=== PATIENT | female | born 1990 | race Caucasian/White ===

== ENCOUNTER 2017-02-16 01:09 | Emergency (ER) | payer MEDICAID ==
[2017-02-16] MEDS ORDERED: NORMAL SALINE 1000 ML 1,000 ML IV ONE (01:20)
--- NOTE | 2017-02-16 01:21 | ER Document Report ---
ED Headache - General Stated Complaint: BLURRY VISION,DIZZY Time Seen by Provider: 02/16/17 01:20 Notes: Patient is a 26-year-old female who presents to the ED complaining of headache with associated sinus congestion and intermittent dizzyness for 5 days. Described her headache as all around her head, consistent with tension type headache. Took motrin 400mg once yesterday with moderate improvement in her symptoms. States she hasnt been drinking much water but mostly coffee TRAVEL OUTSIDE OF THE [place] IN LAST 30 DAYS: No - Related Data Allergies/Adverse Reactions: No Known Allergies Allergy (Unverified 03/12/15 17:32) Past Medical History - Social History Smoking Status: Current Every Day Smoker Family History: Reviewed & Not Pertinent - Immunizations Hx Diphtheria, Pertussis, Tetanus Vaccination: Yes Review of Systems - Review of Systems Constitutional: No symptoms reported EENT: See HPI Cardiovascular: No symptoms reported Respiratory: No symptoms reported Gastrointestinal: No symptoms reported Neurological/Psychological: See HPI -: Yes All other systems reviewed and negative Physical Exam - Vital signs Vitals: Temp Pulse Resp BP Pulse Ox 99.1 F 95 17 119/88 H 98 02/16/17 02:13 02/16/17 02:13 02/16/17 02:13 02/16/17 02:13 02/16/17 02:13 - General General appearance: Appears well, Alert In distress: None - HEENT Head: Normocephalic, Atraumatic Eyes: Normal Conjunctiva: Normal. No: Injected Extraocular movements intact: Yes Eyelashes: Normal Pupils: PERRL Ears: Normal External canal: Normal Tympanic membrane: Bulging, Serous effusion Sinus: Normal. No: Redness, Swelling, Tenderness Nasal: Clear rhinorrhea Mouth/Lips: Normal Mucous membranes: Moist Pharynx: Post nasal drainage Neck: Normal - Respiratory Respiratory status: No respiratory distress Chest status: Nontender Breath sounds: Normal Chest palpation: Normal - Cardiovascular Rhythm: Regular Heart sounds: Normal auscultation, S1 appreciated, S2 appreciated Murmur: No Friction rub: No Linda's crunch: No Gallop: None auscultated - Abdominal Inspection: Normal Distension: No distension Bowel sounds: Normal Tenderness: Nontender Organomegaly: No organomegaly - Neurological Neuro grossly intact: Yes Cognition: Normal Orientation: AAOx4 [place] Coma Scale Eye Opening: Spontaneous [place] Coma Scale Verbal: Oriented [place] Coma Scale Motor: Obeys Commands [place] Coma Scale Total: 15 Speech: Normal Cranial nerves: Normal. 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 No: Weakness Sensory: Normal Course - Re-evaluation Re-evalutation: 02/16/17 03:25 Presentation is most consistent with a viral upper respiratory infection. Patient is overall well appearance, vitals within normal limits, well-hydrated. Patient denies any neck pain, and has no evidence of meningismus on examination. Lungs are clear bilaterally. No evidence of respiratory distress. Based on clinical exam and history, I do not suspect an acute pneumonia, meningitis, strep pharyngitis, or an acute encephalitis. No laboratory or imaging testing is indicated at this time. Will discharge patient with return precautions and followup recommendations. They are in agreement this plan have verbalized understanding return precautions. Patient does not have any focal neurologic deficits, nuchal rigidity, vital signs are within normal limits no papilledema. Patient is otherwise no acute distress and hemodynamically stable. Low index for suspicion of acute subarachnoid hemorrhage, meningitis or mass. Low suspicion for acute life-threatening etiology with intact neuro exam therefore no additional imaging or laboratory testing is indicated. Will discharge patient home with strict follow-up with PCP for blood pressure check within the next week. - Vital Signs Vital signs: Temp Pulse Resp BP Pulse Ox 98.2 F 76 17 113/63 99 02/16/17 04:09 02/16/17 04:09 02/16/17 04:09 02/16/17 04:09 02/16/17 04:09 - Laboratory Laboratory results interpreted by me: 02/16/17 02:24 Urine Protein 30 H Urine Ketones TRACE H Urine Urobilinogen 2.0 H Discharge - Discharge Clinical Impression: Headache, URI (upper respiratory infection) Condition: Good Disposition: HOME, SELF-CARE Instructions: Decongestant-Antihistamine Medication ([facility]) Additional Instructions: HEADACHE: The physician does not feel that the headache you are experiencing has a serious underlying cause. Most headaches are due to emotional stress, with resultant muscle tension (tension headache). Occasionally, headaches are secondary to changes in the blood vessels of the scalp (vascular headache and migraine headache). Sometimes, a headache is the first symptom of another developing illness, such as a viral infection. You have no evidence of stroke, bleeding, meningitis, or other serious cause of your headache. The treatment of headaches varies with the severity and cause of the pain. Not all headaches need pain shots. In fact, there is evidence that using narcotics for headaches may make them worse in the long run. The physician will determine the therapy that's in your best interest. If you develop a fever, if the headache is different from any you've previously experienced, or if the headache progressively worsens, then call your physician at once or go to the emergency room. REGLAN (METOCLOPRAMIDE): Reglan has been prescribed. This medicine affects the stomach and intestines. It can be used to treat nausea and vomiting, to prevent reflux of stomach acid up into the esophagus, or to increase the contractions of the stomach and intestines. It is often prescribed for esophagitis, and for paralysis of the stomach in diabetics. Reglan can cause either mild restlessness or drowsiness. You should contact the doctor at once if you become extremely restless, anxious, or cannot sleep, or if you develop uncontrollable motions of the lips, tongue, or jaw. Do not take alcohol with this medicine. Do not drive or operate machinery until you have been taking this medicine long enough to know how it affects you. Call the doctor if you develop abdominal pains, lightheadedness, black stool, or blood in the stool or vomitus. USE OF DIPHENHYDRAMINE: Diphenhydramine (Benadryl) is an antihistamine and has been recommended to help treat your headache and to prevent side effects of other medications used to treat headaches. The medication can be repeated four times daily. Age Elixir (12.5 mg/tsp) 25 mg pill adult 1-2 tabs Antihistamines may cause drowsiness, especially with the first dose. Do not operate machinery or drive while under the effects of the medication. Do not combine the medication with alcohol, or with any other medication without talking to your doctor. TORADOL INJECTION: You have been given an injection of ketorolac tromethamine (Toradol). This is an excellent, safe drug for pain control. It also has potent antiinflammatory action. You should have significant pain relief within about one hour. Toradol is not addicting and is non-sedating. It does not interfere with driving or work. Call or return if you develop itching, hives, shortness of breath, or rash. FOLLOW-UP CARE: If you have been referred to a physician for follow-up care, call the physician s office for an appointment as you were instructed or within the next two days. If you experience worsening or a significant change in your symptoms, notify the physician immediately or return to the Emergency Department at any time for re-evaluation. Referrals: JUAN JOSE LYON PA-C [Primary Care Provider] - Follow up as needed
[2017-02-16] MEDS ORDERED: ACETAMINOPHEN 325 MG TABLET PO ONE (01:55)
[2017-02-16] MEDS ORDERED: DIPHENHYDRAMINE HCL 25 MG CAPSULE PO ONE (01:55)
[2017-02-16] MEDS ORDERED: ONDANSETRON 4 MG TAB.RAPDIS PO ONE (01:55)
[2017-02-16 03:02] LABS: APPEARANCE,URINE SLIGHTLY-CLOUDY; BILIRUBIN,URINE NEGATIVE (NEGATIVE); GLUCOSE, URINE NEGATIVE (NEGATIVE); KETONES,URINE TRACE mg/dL (NEGATIVE); LEUKOCYTE ESTERASE,URINE NEGATIVE (NEGATIVE); NITRITE,URINE NEGATIVE (NEGATIVE); PROTEIN,URINE 30 mg/dL (NEGATIVE); URINE SPECIFIC GRAVITY 1.023
[2017-02-16] MEDS ORDERED: KETOROLAC TROMETHAMINE INJ/PF 30 MG/1 ML SDV IV ONE (03:10)
[2017-02-16 04:19] VITALS: BP 113/63
== END 2017-02-16 04:19 | disposition home or self-care (01) ==
LOC: ER 01:09
DX: J06.9 Acute upper respiratory infection, unspecified (principal); H53.8 Other visual disturbances; R42 Dizziness and giddiness; R51 Headache
CPT/HCPCS: 99284; 96361; 96374; 81025; 81001; J3490 ×2; S0119; J1885; J7030

== ENCOUNTER 2019-06-30 05:10 | Emergency (ER) | payer MEDICAID ==
[2019-06-30] MEDS ORDERED: IBUPROFEN 800 MG TABLET PO ONE (05:50)
[2019-06-30] MEDS ORDERED: DEXAMETHASONE SOD PHOS INJ 10 MG/1 ML VIAL IM ONE (05:50)
[2019-06-30] MEDS ORDERED: CEPHALEXIN 500 MG CAPSULE PO ONE (05:50)
--- NOTE | 2019-06-30 05:50 | ER Document Report ---
HPI - HPI Pain Level: 4 Context: Patient is a 28-year-old female that comes to the emergency department for chief complaint of sore throat that started yesterday, today she also developed a fever. She states that it is very painful to swallow and feels like strep throat which she has had in the past. She states it feels like it is "throbbing between my ears". She is still able to swallow, she denies chest pain, abdominal pain, shortness of breath, or any other complaints. She is currently on her menstrual cycle. She denies any daily medications or diagnosed medical problems. She denies any recent contacts or exposures that she can think of. - REPRODUCTIVE Reproductive: DENIES: : Past Medical History - General Information source: Patient - Social History Smoking Status: Former Smoker Chew tobacco use (# tins/day): No Frequency of alcohol use: Rare Drug Abuse: None Lives with: Family Family History: Reviewed & Not Pertinent Patient has suicidal ideation: No Patient has homicidal ideation: No Renal/ Medical History: Denies: Hx Peritoneal Dialysis Past Surgical History: Reports: Hx Section - Immunizations Hx Diphtheria, Pertussis, Tetanus Vaccination: Yes Vertical Provider Document - CONSTITUTIONAL General Appearance: WD/WN, No Apparent Distress - INFECTION CONTROL TRAVEL OUTSIDE OF THE [place] IN LAST 30 DAYS: No - HEENT HEENT: Atraumatic, Normocephalic. negative: Normal ENT Exam - Unremarkable nasal and ear exams, unremarkable eye exam. Oropharyngeal exam shows tonsillitis with exudates, uvula unremarkable, no peritonsillar abscess noted, unremarkable otherwise. - NECK Neck: Other - Bilateral anterior cervical adenopathy - RESPIRATORY Respiratory: Breath Sounds Normal, No Respiratory Distress - CARDIOVASCULAR Cardiovascular: Regular Rate, Regular Rhythm, Tachycardia - Borderline tachycardia - GI/ABDOMEN Gastrointestinal: Abdomen Soft, Abdomen Non-Tender, No Organomegaly - No noted splenomegaly. negative: Abdomen Tender - BACK Back: Normal Inspection - MUSCULOSKELETAL/EXTREMETIES Musculoskeletal/Extremeties: MAEW, FROM, Non-Tender - NEURO Level of Consciousness: Awake, Alert, Appropriate Motor/Sensory: No Motor Deficit, No Sensory Deficit - DERM Integumentary: Warm, Dry, No Rash Course - Re-evaluation Re-evalutation: Patient with sore throat, fever, she has exudative pharyngitis, anterior cervical adenopathy, no cough. I offered strep swab/testing but patient requested we did not perform this and she simply be treated. Patient does not have splenomegaly noted on exam. I did discuss how this still could be viral. She will be treated with antibiotics and with Decadron. Patient febrile and tachycardic but very well-appearing, talkative, alert, able to swallow fluids without any difficulty. She is requesting water, also treating fever. Discussed treatment, expectations, follow-up, return precautions. Patient states understanding and agreement. Stable at time of discharge. - Vital Signs Vital signs: Temp Pulse Resp BP Pulse Ox 101.6 F H 135 H 19 145/77 H 97 06/30/19 05:16 06/30/19 05:16 06/30/19 05:16 06/30/19 05:16 06/30/19 05:16 Discharge - Discharge Clinical Impression: Exudative pharyngitis, Anterior cervical adenopathy Fever Qualifiers: Fever type: unspecified Qualified Code(s): R50.9 - Fever, unspecified Condition: Stable Disposition: HOME, SELF-CARE Additional Instructions: Your symptoms and evaluation meet criteria for strep throat. You have been treated for this. Your symptoms should resolve. There is a possibility that this is viral, if it is it may last longer but will resolve on its own. See mononucleosis directions below. Take Tylenol or ibuprofen for pain, drink plenty fluids, and rest. Follow-up with primary care. Return for any concerning symptoms (worsening pain, difficulty swallowing, change in your voice ,etc). Mononucleosis This is a viral infection which can last several weeks. Typically, a week or two of tiredness precedes a sore throat, swollen glands, fever, and aches. Sometimes there's a rash. In severe cases, swollen spleen and liver develop. There is no cure for mononucleosis. You should rest, drink plenty of fluids, and avoid contact or high risk of injury sports until you are better (you could rupture your swollen spleen). A follow-up examination is usually done in about a week. Further laboratory testing may be necessary then. See the doctor if there is significant worsening of the symptoms or onset of new symptoms such as severe headache, stiff neck, generalized or severe abdominal pain, or faintness. Prescriptions: Cephalexin Monohydrate [Keflex 500 mg Capsule] 500 mg PO BID 10 Days #20 capsule Referrals: JUAN JOSE LYON PA-C [Primary Care Provider] - Follow up as needed
[2019-06-30 07:01] VITALS: BP 109/58
== END 2019-06-30 07:00 | disposition home or self-care (01) ==
LOC: ER 05:10
DX: R59.0 Localized enlarged lymph nodes (principal); J02.9 Acute pharyngitis, unspecified; R50.9 Fever, unspecified; R13.10 Dysphagia, unspecified; Z87.891 Personal history of nicotine dependence
CPT/HCPCS: 99282; 96372; J3490; J1100